=== PATIENT | male | born 2000 | race Caucasian/White ===

== ENCOUNTER 2024-04-23 16:13 | Emergency (ER) | payer BC, SELFPAY ==
[2024-04-23 16:19] VITALS: BP 127/82; PULSE 100; RESP 16; TEMP 36.4; O2SAT 99
[2024-04-23 16:46] VITALS: BP 124/95; PULSE 67; RESP 17; O2SAT 100
[2024-04-23 16:57] VITALS: O2SAT 100
[2024-04-23 17:00] VITALS: O2SAT 100
[2024-04-23] MEDS: LACTATED RINGERS 1,000 ML 999 ML IV CONT (17:07)
[2024-04-23] MEDS: MORPHINE SULFATE (*CRX) 4 MG/ML INJ IV PUSH (17:08)
[2024-04-23] MEDS: PROMETHAZINE HCL 25 MG/ML AMPUL 12.5 MG IV PUSH (17:08)
[2024-04-23] MEDS: FAMOTIDINE 20 MG/2 ML VIAL IV PUSH (17:08)
[2024-04-23 17:11] LABS: Basophils Percent Auto 0.7 % (0.2-1.2); Eosinophils Absolute Auto 0.1 K/mm3 (0-0.3); Eosinophils Percent Auto 1.1 % (0-4.4); Hematocrit 34.7 % (42.0-52.0); Hemoglobin 10.8 g/dL (14.0-18.0); Immature Granulocyte Absolute 0.01 K/mm3 (0.00-0.031); Immature Granulocyte Percent A 0.2 % (0-0.5); Lymphocytes Absolute Auto 0.83 K/mm3 (0.9-3.2); Lymphocytes Percent Auto 18.6 % (18.3-44.2); Mean Corpuscular HGB Conc 31.1 g/dl (32-36); Mean Corpuscular Hemoglobin 25.1 pg (26-34); Mean Corpuscular Volume 80.7 fl (80-100); Mean Platelet Volume 10.2 fl (7.4-10.4); Monocytes Absolute Auto 0.4 K/mm3 (0.1-0.6); Monocytes Percent Auto 7.8 % (2.6-8.5); Neutrophils Absolute Auto 3.2 K/mm3 (1.3-6.7); Neutrophils Percent Auto 71.6 % (45.5-73.1); Platelet Count Result 161 k/mm3 (150-375); Red Cell Distribution Width 16.7 % (11.5-14.5); White Blood Count 4.5 K/mm3 (4.5-10.0)
--- NOTE | 2024-04-23 17:11 | ED.ABDPAIN ---
HPI - Abdominal Pain General Chief Complaint: Abdominal Pain Stated Complaint: abd pain Time Seen by Provider: 04/23/24 16:40 History of Present Illness HPI narrative: Patient presents here with slight nausea, vomiting, diarrhea, started 1-2 days ago, also has diffuse abdominal pain worse on the right side. History of pancreas surgery in December. Related Data Allergies Allergy/AdvReac Type Severity Reaction Status Date / Time No Known Allergies Allergy Verified 04/23/24 16:16 Review of Systems Review of Systems: All systems reviewed & are unremarkable except as noted in HPI and below Exam Narrative: EXAMINATION OF ORGAN SYSTEMS/BODY AREAS: Constitutional: Vital signs per nursing GENERAL:[No acute distress, non-toxic appearing.] HEAD: Normal with no signs of head trauma. EYES: EOMI, conjunctiva normal ENT: Hearing grossly intact LUNGS: Nonlabored breathing. HEART: [Regular rate and rhythm] ABD: [Soft], [nontender to palpation], no RLQ tenderness, neg Yang's sign EXT: Normal range of motion SKIN: [No rashes or lesions.] NEURO: [Alert and oriented x 3. No gross focal sensory or strength deficits.] PSYCH: Normal affect Course Vital Signs Vital signs: Vital Signs Temperature 97.5 F L 04/23/24 16:19 Pulse Rate 100 04/23/24 16:19 Respiratory Rate 16 04/23/24 16:19 Blood Pressure 127/82 04/23/24 16:19 Pulse Oximetry 99 04/23/24 16:19 Temperature 97.5 F L 04/23/24 16:19 Pulse Rate 100 04/23/24 16:19 Respiratory Rate 16 04/23/24 16:19 Blood Pressure 127/82 04/23/24 16:19 Pulse Oximetry 99 04/23/24 16:19 MDM - Abdominal Pain MDM Narrative Medical decision making narrative: 24M h/o pancreatic surgery p/w n/v and abd pain last 1-2 days; had similar sx 1-2 wk ago with w/u including CT scan that was negative, same sx today. Abdomen is soft and nontender here and he is overall well-appearing, labs obtained without any obvious abnormality, he has no elevated white count, after medications he feels much better and states that his symptoms have completely resolved. Should decision making with patient and mother at bedside, he has already had multiple recent CTs that were unremarkable and with a long discussion, will defer CT today given his completely benign exam and resolved symptoms, and he has specialist follow-up in the next 3 days. Return precautions discussed, parent promises to take him back if he starts having symptoms again or anything else concerning. Lab Data 04/23/24 17:04 04/23/24 17:04 Labs: Lab Results 04/23/24 Range/Units 17:04 WBC 4.5 (4.5-10.0) K/mm3 RBC 4.30 L (4.6-6.20) M/mm3 Hgb 10.8 L (14.0-18.0) g/dL Hct 34.7 L (42.0-52.0) % MCV 80.7 (80-100) fl MCH 25.1 L (26-34) pg MCHC 31.1 L (32-36) g/dl RDW 16.7 H (11.5-14.5) % Plt Count 161 (150-375) k/mm3 MPV 10.2 (7.4-10.4) fl Immature Gran % (Auto) 0.2 (0-0.5) % Neut % (Auto) 71.6 (45.5-73.1) % Lymph % (Auto) 18.6 (18.3-44.2) % [place] % (Auto) 7.8 (2.6-8.5) % Eos % (Auto) 1.1 (0-4.4) % Baso % (Auto) 0.7 (0.2-1.2) % Lymph # (Auto) 0.83 L (0.9-3.2) K/mm3 [place] # (Auto) 0.4 (0.1-0.6) K/mm3 Eos # (Auto) 0.1 (0-0.3) K/mm3 Baso # (Auto) 0.0 (0.0-0.1) K/mm3 Abs Immat Gran (auto) 0.01 (0.00-0.031) K/mm3 Absolute Neuts (auto) 3.2 (1.3-6.7) K/mm3 Absolute Nucleated RBC 0.000 (0.0-0.012) K/mm3 Nucleated RBC % 0.0 (0.0-0.2) % Sodium 141 (137-145) mmol/L Potassium 3.6 (3.4-5.0) mmol/L Chloride 106 (98-107) mmol/L Carbon Dioxide 25 (22-30) mmol/L Anion Gap 10 (4-12) mmol/L BUN 13 (9-20) mg/dL Creatinine 0.70 (0.7-1.3) mg/dL Estim Creat Clear Calc 135 ml/min Estimated GFR > 60 (59 - ) Glucose 98 (65-110) mg/dL Calcium 8.6 (8.4-10.2) mg/dL Total Bilirubin 2.3 H (0.2-1.3) mg/dL AST 40 (17-59) U/L ALT 28 (6-50) U/L Alkaline Phosphatase 113 (38-126) U/L Total Protein 7.0 (6
[2024-04-23 17:12] LABS: Add Urine Microscopic? NO; Appearance Urine Clear (Clear); Bilirubin Urine Negative (Negative); Blood Urine Negative (Negative); Color Urine Yellow (Yellow); Glucose Urine UA Negative (Negative); Ketones Urine Negative (Negative); Leukocyte Esterase Ur Negative LEU/UL (Negative); Nitrate Urine Negative (Negative); Protein Urine Negative (Negative); Specific Grav Ur 1.013 (1.001-1.035)
[2024-04-23 17:20] LABS: Alanine Aminotransferase 28 U/L (6-50); Albumin Level 4.1 g/dL (3.5-5.1); Alkaline Phosphatase 113 U/L (38-126); Anion Gap 10 mmol/L (4-12); Aspartate Amino Transferase 40 U/L (17-59); Bilirubin,Total 2.3 mg/dL (0.2-1.3); Blood Urea Nitrogen 13 mg/dL (9-20); Calcium 8.6 mg/dL (8.4-10.2); Carbon Dioxide 25 mmol/L (22-30); Chloride 106 mmol/L (98-107); Estimated CRCL calculation 135 ml/min; Estimated Glomerular Filt Rate > 60; Glucose 98 mg/dL (65-110); Lipase 14 U/L (23-300); Potassium 3.6 mmol/L (3.4-5.0); Sodium 141 mmol/L (137-145)
[2024-04-23 18:24] VITALS: BP 106/68; PULSE 76; RESP 18; O2SAT 100
== END 2024-04-23 18:25 | disposition home or self-care (01) ==
PROVIDERS: Emergency Provider Emergency Medicine
DX: R11.2 Nausea with vomiting, unspecified (principal)
CPT/HCPCS: 36415; 80053; 81003; 83690; 85025; 96361; 96374; 96375; 99284; J2270; J2550; J7120